=== PATIENT | male | born 2005 | race Two or more races ===

== ENCOUNTER 2024-12-17 12:57 | Emergency (ER) | payer MEDICAID ==
[~2024-12-17] VITALS: Ht 167.6 cm; Wt 120.0 kg
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
[2024-12-17 13:51] VITALS: BP 127/83; PULSE 71; RESP 18; TEMP 98.2; O2SAT 98
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
== END 2024-12-17 13:53 | disposition home or self-care (01) ==
LOC: ER 12:57
DX: S01.01XA Laceration without foreign body of scalp, initial encounter (principal); X58.XXXA Exposure to other specified factors, initial encounter; Y93.89 Activity, other specified; Y92.89 Other specified places as the place of occurrence of the external cause; Y99.8 Other external cause status
CPT/HCPCS: 12001; 70450

== ENCOUNTER 2024-12-28 18:00 | Emergency (ER) | payer MEDICAID ==
[~2024-12-28] VITALS: Ht 165.1 cm; Wt 59.9 kg
[2024-12-28 18:05] VITALS: BP 101/64; PULSE 70; RESP 16; TEMP 97.9; O2SAT 100
== END 2024-12-28 19:22 | disposition left against medical advice (07) ==
LOC: ER 18:00
DX: S01.81XD Laceration without foreign body of other part of head, subsequent encounter (principal); Z53.21 Procedure and treatment not carried out due to patient leaving prior to being seen by health care provider; X58.XXXD Exposure to other specified factors, subsequent encounter